=== PATIENT | male | born 1980 | race Caucasian/White ===

== ENCOUNTER 2021-07-01 13:59 | Outpatient (CLI) | payer BC ==
[2021-07-01] VITALS (7 sets, daily range): BP systolic 117–138; BP diastolic 73–91; PULSE 75–86; TEMP 99.3
[2021-07-01] MEDS ORDERED: WELLBUTRIN XL150 MG PO (14:28)
[2021-07-01] MEDS ORDERED: ZOLOFT 100MG100 MG PO (14:29)
[2021-07-01] MEDS ORDERED: PRIL40 PO (14:29)
== END 2021-07-01 15:45 | disposition home or self-care (01) ==
LOC: EUO 13:59
DX: J02.9 Acute pharyngitis, unspecified (principal)
CPT/HCPCS: Q0244